=== PATIENT | female | born 1990 | race African-American/Black ===

== ENCOUNTER 2017-05-28 23:47 | Emergency (ER) | payer MEDICAID | END 2017-05-29 00:53 | disposition left against medical advice (07) | LOC: ER 23:47 | DX: Z53.21 Procedure and treatment not carried out due to patient leaving prior to being seen by health care provider (principal) ==

== ENCOUNTER 2018-07-18 23:32 | Emergency (ER) | payer MEDICAID ==
[~2018-07-18] VITALS: Ht 167.6 cm; Wt 73.0 kg
[2018-07-19] MEDS ORDERED: ALBUTEROL (0.083%) 2.5MG/3ML NEB HHN ONE (00:45)
[2018-07-19] MEDS ORDERED: ALBUTEROL (0.083%) 2.5MG/3ML NEB ONE (01:11)
[2018-07-19] MEDS ORDERED: GUAIFENESIN 600MG ER TABLET PO NR (03:00)
[2018-07-19 03:35] VITALS: BP 118/67
== END 2018-07-19 03:37 | disposition home or self-care (01) ==
LOC: ER 23:32
DX: R06.02 Shortness of breath (principal); R05 Cough
CPT/HCPCS: 36415; 71045; 81025; 82962; 85379; 93005; 94640; 99284; J7611; Z7610